=== PATIENT | female | born 1970 | race Caucasian/White ===

== ENCOUNTER 2016-08-15 18:00 | Inpatient (IN) | payer OTHER ==
[~2016-08-15] VITALS: Ht 162.6 cm; Wt 93.9 kg
--- NOTE | ~2016-08-15 | 2DMMODE ---
[facility] [address] [place] [address] 2 D/M-MODE ECHOCARDIOGRAM Name: ANDREA GONZALEZ Sunitha Room #: 460-P [facility] IN ..#: [id number] Admission: 08/15/16 Attend Phys: Kt Hector Discharge: Date of : 72 Date of Service: 08/16/16 1009 Report #: [id number] THIS REPORT FOR: //name// APPROVED REPORT Study performed: 08/16/2016 08:35:37 EXAM: Comprehensive 2D, Doppler, and color-flow Echocardiogram Patient Location: Echo lab Room #: [facility] Status: stat Other Information Study Quality: Adequate Indications Chest Pain Hx Alchohol withdrawl, AFIB, HTN 2D Dimensions RVDd: 43.49 mm LVEF(%): 76.99 (>50%) IVSd: 9.72 (7-11mm) LVOT Diam: 21.29 (18-24mm) LVDd: 46.61 mm PWd: 10.90 (7-11mm) Ascending Ao: 33.39 (22-36mm) LVDs: 25.35 (25-40mm) Aortic Root: 28.95 mm Veliz's LVEF: 76.99 % Volumes Left Atrial Volume (Systole) Single Plane 4CH: 44.76 mL Single Plane 2CH: 44.25 mL Aortic Valve AoV Peak Rad.: 1.57 m/s AO Peak Gr.: 9.89 mmHg LVOT Max P.52 mmHg LVOT Max V: 1.17 m/s YUE Vmax: 2.66 cm2 Mitral Valve E/A Ratio: 1.0 MV Decel. Time: 253.99 ms MV E Max Rad.: 0.83 m/s MV A Rad.: 0.87 m/s MV PHT: 73.66 ms IVRT: 143.02 ms [facility] [address] [address] 2 D/M-MODE ECHOCARDIOGRAM Name: LISAANDREA Sunitha Room #: 460-P [facility]#: [id number] Admission: 08/15/16 Attend Phys: Kt Hector Discharge: Date of : 72 Date of Service: 08/16/16 1009 Report #: [id number] Pulmonary Valve PV Peak Rad.: 1.21 m/s PV Peak Gr.: 5.90 mmHg Pulmonary Vein P Vein S: 0.72 m/s P Vein A: 0.40 m/s P Vein D: 0.46 m/s P Vein A Dur.: 110.7 msec P Vein S/D Ratio: 1.57 Left Ventricle The left ventricle is normal size. There is normal LV segmental wall motion. There is normal left ventricular wall thickness. The left ventricular systolic function is normal. The left ventricular ejection fraction is within the normal range. LVEF is 60-65%. Grade I - abnormal relaxation pattern. Right Ventricle The right ventricle is normal size. The right ventricular systolic function is normal. Atria The left atrium size is normal. The right atrium size is normal. Aortic Valve The aortic valve is normal in structure. No aortic regurgitation is present. There is no aortic valvular stenosis. Mitral Valve The mitral valve is normal in structure. There is no mitral valve regurgitation noted. No evidence of mitral valve stenosis. Tricuspid Valve The tricuspid valve is normal in structure. There is no tricuspid valve regurgitation noted. Pulmonic Valve The pulmonary valve is normal in structure. There is no pulmonic valvular regurgitation. Great Vessels The aortic root is normal in size. The ascending aorta is normal in size. IVC is normal in size and collapses >50% with inspiration. Pericardium [facility] [address] [place] [address] 2 D/M-MODE ECHOCARDIOGRAM Name: ANDREA GONZALEZ Room #: 460-P [facility] IN [facility]#: [id number] Admission: 08/15/16 Attend Phys: Kt Hector Discharge: Date of : 72 Date of Service: 08/16/16 1009 Report #: [id number] There is no pericardial effusion. <Conclusion> The left ventricle is normal size. LVEF is 60-65%. The aortic valve is normal in structure. The mitral valve is normal in structure. The tricuspid valve is normal in structure. The pulmonary valve is normal in structure. <ELECTRONICALLY SIGNED> By: Kaden Puga MD 08/16/16 1009 1009 1009 Kaden Puga MD /INF
--- NOTE | ~2016-08-15 | EKG ---
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[employer] Studies: [id number] : 1970 Requested By: Niyah Solorzano Order Number: [id number] MD: Chuy Gage Measurements Intervals [place] Rate: 143 P: 35 IN: 109 QRS: -15 QRSD: 84 T: 18 QT: 293 QTc: 452 Interpretive Statements Sinus tachycardia Borderline left axis deviation Borderline ST depression, lateral leads Compared to ECG 11/15/2014 11:08:44 ST (T wave) deviation now present Electronically Signed On 08-15-2016 22:11:24 CDT by Chuy Gage [email or web address] <ELECTRONICALLY SIGNED> By: Chuy Gage MD 08/15/16 2211 12 12 Chuy Gage MD /EPI
[~2016-08-15 18:00] MED LIST: ATIVAN1 MG; ATIVAN1 MG PO; CHLORDIAZEPOXID10 MG PO; LOPRESSOR50 PO; METOPROLOL SUCC50 MG PO; PEPCID20 MG PO; SERTRALINE HCL25 MG PO; SERTRALINE HCL50 MG PO; THIAMINE HCL100 MG PO; TRINATE TABLET1 TAB PO; VITAMIN B-1100 M1 PO; XARELTO15 MG PO
[2016-08-15 18:01] VITALS: BP 150/98
[2016-08-15 18:21] LABS: HEMATOCRIT 46.9 % (37.0-47.0); HEMOGLOBIN 15.8 gm/dL (12.0-15.0); MCH 28.7 pg (26.0-34.0); MCHC 33.7 g/dL (28.0-37.0); MCV 85.3 fL (80.0-100.0); PLATELET COUNT 544 thou/uL (150-400); RDW 15.3 % (10.5-14.5)
[2016-08-15 18:22] LABS: MANUAL DIFF YES
[2016-08-15 18:30] LABS: ANION GAP 25 mmol/L (7-16); BUN 20 mg/dL (7-18); CALCIUM 9.4 mg/dL (8.5-10.1); CHLORIDE 92 mmol/L (98-107); CO2 17 mmol/L (21-32); CREATININE 0.9 mg/dL (0.6-1.0); GLUCOSE 154 mg/dL (74-106); POTASSIUM 3.4 mmol/L (3.5-5.1); SODIUM 134 mmol/L (136-145)
[2016-08-15 18:41] LABS: MAGNESIUM 2.4 mg/dL (1.8-2.4); NT-PRO BRAIN NAT PEPTIDE 67 pg/mL (<300); TROPONIN-I < 0.04 ng/mL (<0.04-0.07)
[2016-08-15 18:51] LABS: ABSOLUTE NEUTROPHILS 17.6 thou/uL (1.4-8.2); TOTAL CELL COUNT 100
[2016-08-15 18:52] LABS: ANISOCYTOSIS SLIGHT; LARGE PLATELETS RARE
[2016-08-15 19:44] LABS: URINE BILIRUBIN NEGATIVE (Negative); URINE BLOOD 2+ (Negative); URINE COLOR YELLOW; URINE GLUCOSE-RANDOM* NEGATIVE (Negative); URINE KETONES 2+ (Negative); URINE LEUKOCYTES-REFLEX NEGATIVE (Negative); URINE PROTEIN (DIPSTICK) 3+ (Negative); URINE SPECIFIC GRAVITY >= 1.030 (1.003-1.035)
[2016-08-15 19:53] LABS: SQUAMOUS >10 Many /LPF (0-3)
[2016-08-15 19:54] LABS: HYALINE CASTS 0-3 Few /LPF (None Seen)
[2016-08-15 19:55] LABS: CRYSTALS None Seen /LPF (None Seen); URINE RBC 3-10 Few /HPF (0-2); URINE WBC-REFLEX 0-5 Rare /HPF (0-5)
[2016-08-15 22:29] VITALS: BP 154/93
[2016-08-16 01:44] LABS: HEMATOCRIT 40.6 % (37.0-47.0); MCH 28.4 pg (26.0-34.0); MCHC 33.7 g/dL (28.0-37.0); MCV 84.2 fL (80.0-100.0); RBC 4.82 mil/uL (4.20-5.00); RDW 15.3 % (10.5-14.5); WBC 20.7 thou/uL (4.0-11.0)
[2016-08-16 01:46] LABS: HEMOGLOBIN 13.7 gm/dL (12.0-15.0)
[2016-08-16 01:53] LABS: CALCIUM 8.2 mg/dL (8.5-10.1); CREATININE 0.9 mg/dL (0.6-1.0); MAGNESIUM 2.3 mg/dL (1.8-2.4); POTASSIUM 3.3 mmol/L (3.5-5.1)
[2016-08-16 03:19] VITALS: BP 155/96
[2016-08-16 07:48] VITALS: BP 151/97
[2016-08-16 11:23] VITALS: BP 142/100
[2016-08-16 16:27] VITALS: BP 141/105
[2016-08-16 20:14] VITALS: BP 139/90
[2016-08-17 04:31] VITALS: BP 121/89
[2016-08-17 06:13] LABS: ABSOLUTE NEUTROPHILS 3.1 thou/uL (1.4-8.2); EOSINOPHILS 0.5 % (0.0-3.0); HEMATOCRIT 39.1 % (37.0-47.0); HEMOGLOBIN 13.2 gm/dL (12.0-15.0); LYMPHOCYTES 33.9 % (24.0-44.0); MANUAL DIFF NO; MCH 28.9 pg (26.0-34.0); MCHC 33.9 g/dL (28.0-37.0); MCV 85.4 fL (80.0-100.0); MONOCYTES 11.4 % (1.0-8.0); PLATELET COUNT 270 thou/uL (150-400); POLYS 50.2 % (36.0-66.0); RBC 4.58 mil/uL (4.20-5.00); RDW 14.4 % (10.5-14.5); WBC 6.2 thou/uL (4.0-11.0)
[2016-08-17 06:20] LABS: CALCIUM 8.4 mg/dL (8.5-10.1); CREATININE 0.7 mg/dL (0.6-1.0); POTASSIUM 3.5 mmol/L (3.5-5.1)
[2016-08-17 07:40] VITALS: BP 127/89
[2016-08-17 08:00] VITALS: BP 127/89
[2016-08-17 12:23] VITALS: BP 120/82
[2016-08-17 16:25] VITALS: BP 115/80
[2016-08-17 19:30] VITALS: BP 105/75
[2016-08-18] VITALS: BP 127/89
[2016-08-18 03:55] VITALS: BP 137/87
[2016-08-18 07:42] VITALS: BP 120/86
[2016-08-18] MEDS ORDERED: ATENOLOL 25 MG25 M1 PO (11:58)
[2016-08-18] MEDS ORDERED: VITAMIN B-1100 M2 PO (11:58)
[2016-08-18] MEDS ORDERED: PEPCID20 MG PO (11:58)
[2016-08-18] MEDS ORDERED: CELEXA20 MG PO (11:58)
[2016-08-18] MEDS ORDERED: TRINATE TABLET1 TAB PO (11:58)
[2016-08-18] MEDS ORDERED: VISTARIL 25 MG25 M1 PO (11:58)
[2016-08-18 12:12] VITALS: BP 120/86
[2016-08-18 12:13] VITALS: BP 120/86
[2016-08-18 12:40] VITALS: BP 113/78
== END 2016-08-18 17:20 | disposition home or self-care (01) | DRG 897 ==
LOC: ER 18:00 → EROBS 20:45 → 4W 20:45
PROVIDERS: Emergency Medicine; Internal Medicine Endocrinology, Diabetes & Metabolism; Nurse Practitioner Acute Care
DX: F10.239 Alcohol dependence with withdrawal, unspecified (principal); E87.2 Acidosis; I50.20 Unspecified systolic (congestive) heart failure; Y90.0 Blood alcohol level of less than 20 mg/100 ml; F41.9 Anxiety disorder, unspecified; F32.9 Major depressive disorder, single episode, unspecified; R13.10 Dysphagia, unspecified; E86.0 Dehydration; D72.829 Elevated white blood cell count, unspecified; E87.6 Hypokalemia; I11.0 Hypertensive heart disease with heart failure; I48.91 Unspecified atrial fibrillation; Z79.01 Long term (current) use of anticoagulants; Z79.899 Other long term (current) drug therapy; Z88.4 Allergy status to anesthetic agent; Z88.8 Allergy status to other drugs, medicaments and biological substances
CPT/HCPCS: 10045